=== PATIENT | female | born 1965 ===

== ENCOUNTER 2018-01-31 09:20 | Emergency (ER) | payer OTHER ==
[2018-01-31 09:27] VITALS: BP 137/85; PULSE 67; RESP 18; TEMP 99.1; O2SAT 96
--- NOTE | 2018-01-31 09:50 | C.PDOC ---
History Of Present Illness 52 y/o F c PMHx vertigo p/w cough x 4 days. Cough is productive but patient does not know color. Subjective fever at home. Denies vomiting, chest pain, dysnea, leg swelling. Time Seen by Provider: 01/31/18 09:32 Chief Complaint (Nursing): Cough, Cold, Congestion Past Medical History Vital Signs: Last Vital Signs Temp 99.1 F 01/31/18 09:22 Pulse 67 01/31/18 09:22 Resp 18 01/31/18 09:22 BP 137/85 01/31/18 09:22 Pulse Ox 96 01/31/18 09:51 Family History: States: No Known Family Hx - Social History Hx Tobacco Use: No Hx Alcohol Use: No Hx Substance Use: No - Immunization History Hx Tetanus Toxoid Vaccination: No Hx Influenza Vaccination: No Hx Pneumococcal Vaccination: No Review Of Systems Except As Marked, All Systems Reviewed And Found Negative. Cardiovascular: Negative for: Chest Pain Respiratory: Negative for: Shortness of Breath Physical Exam - Physical Exam Additional Physical Exam Comments: Gen: NAD, coughing intermittently, hoarse voice Head: NC/AT Eyes: PERRL ENT: MMM Neck: Supple Chest: No tenderness CV: Regular rate Lungs: CTA b/l Abd: Soft, NT Back: No CVA tenderness Skin: No rash Extremities: No swelling Neuro: Alert, no focal deficit ED Course And Treatment O2 Sat by Pulse Oximetry: 96 Medical Decision Making Medical Decision Making: Patient mentioned that she has a lower pelvic pain for the last month. I informed her that she can have that evaluated with the cough during today's visit but she refused any evaluation of it and wished to only be seen as if she had a cough. CXR FINDINGS: LUNGS: No consolidation. Possible prominence of the right hilum probable top-normal right infrahilar a vascular markings PLEURA: No significant pleural effusion identified. No pneumothorax apparent. CARDIOVASCULAR: Mild cardiomegaly OSSEOUS STRUCTURES: No significant abnormalities. VISUALIZED UPPER ABDOMEN: Normal. OTHER FINDINGS: None. IMPRESSION: No consolidation. Possible prominent right hilum - chronicity of this appearance is unknown. . If prior outside studies are available 2 years or older recommend comparison to ensure stability. Not consider CT of the chest -preferably with contrast enhancement Other findings -as above. Discharged home, f/u clinic, copy of XR report given, return to ED for worsening pain, fever, dyspnea, or any other problem. Disposition - Disposition Disposition: HOME/ ROUTINE Disposition Time: 10:16 Condition: STABLE Additional Instructions: CXR FINDINGS: LUNGS: No consolidation. Possible prominence of the right hilum probable top-normal right infrahilar a vascular markings PLEURA: No significant pleural effusion identified. No pneumothorax apparent. CARDIOVASCULAR: Mild cardiomegaly OSSEOUS STRUCTURES: No significant abnormalities. VISUALIZED UPPER ABDOMEN: Normal. OTHER FINDINGS: None. IMPRESSION: No consolidation. Possible prominent right hilum - chronicity of this appearance is unknown. . If prior outside studies are available 2 years or older recommend comparison to ensure stability. Not consider CT of the chest -preferably with contrast enhancement Other findings -as above. Prescriptions: Benzonatate [Tessalon Perles] 200 mg PO TID #30 sgl Instructions: Upper Respiratory Infection (ED) Forms: [facility] (Wallisian), Work Excuse - Clinical Impression Clinical Impression: Upper respiratory infection
--- NOTE | 2018-01-31 10:10 | RAD ---
HISTORY: cough COMPARISON: No prior. TECHNIQUE: Chest PA and lateral FINDINGS: LUNGS: No consolidation. Possible prominence of the right hilum probable top-normal right infrahilar a vascular markings PLEURA: No significant pleural effusion identified. No pneumothorax apparent. CARDIOVASCULAR: Mild cardiomegaly OSSEOUS STRUCTURES: No significant abnormalities. VISUALIZED UPPER ABDOMEN: Normal. OTHER FINDINGS: None. IMPRESSION: No consolidation. Possible prominent right hilum - chronicity of this appearance is unknown. . If prior outside studies are available 2 years or older recommend comparison to ensure stability. Not consider CT of the chest -preferably with contrast enhancement Other findings -as above. Comments: Study marked for PA review.
== END 2018-01-31 10:31 | disposition home or self-care (01) ==
LOC: C.ER 09:20
DX: J06.9 Acute upper respiratory infection, unspecified (principal)

== ENCOUNTER 2018-09-21 11:37 | Observation (INO) | payer OTHER ==
--- NOTE | 2018-09-21 13:54 | RAD ---
Date of service: 09/21/2018 HISTORY: SOB, Cp COMPARISON: Chest radiographs 01/31/2018. FINDINGS: LUNGS: No active pulmonary disease. PLEURA: No significant pleural effusion identified, no pneumothorax apparent. CARDIOVASCULAR: No aortic atherosclerotic calcification present. Normal cardiac size. No pulmonary vascular congestion. OSSEOUS STRUCTURES: No significant abnormalities. VISUALIZED UPPER ABDOMEN: Normal. OTHER FINDINGS: None. IMPRESSION: No interval acute cardiopulmonary disease appreciated.
[2018-09-21 13:59] LABS: BASO % 0.6 % (0.0-2.0); EOS # 0.1 K/uL (0.0-0.7); EOS % 3.2 % (0.0-4.0); HEMOGLOBIN 13.9 g/dL (11.0-16.0); LYMPH # 1.5 K/uL (1.0-4.3); LYMPH % 32.9 % (20.0-40.0); MEAN CELL VOLUME 87.1 fL (81.0-99.0); MEAN CORPUSCULAR HEMOGLOBIN 29.9 pg (27.0-31.0); MEAN CORPUSCULAR HGB CONC 34.3 g/dL (33.0-37.0); MEAN PLATELET VOLUME 8.8 fL (7.2-11.7); MONO # 0.5 K/uL (0.0-0.8); MONO % 11.6 % (0.0-10.0); NEUT # 2.3 K/uL (1.8-7.0); NEUT % 51.7 % (50.0-75.0); NRBC % 0.2 % (0.0-2.0); RBC 4.66 Mil/uL (3.80-5.20); RED CELL DISTRIBUTION WIDTH 14.1 % (11.5-14.5); WHITE BLOOD COUNT 4.5 K/uL (4.8-10.8)
[2018-09-21 14:01] LABS: URINE BACTERIA RARE (<OCC); URINE BILIRUBIN NEGATIVE (NEGATIVE); URINE BLOOD 1+ (NEGATIVE); URINE CLARITY Clear (Clear); URINE COLOR Yellow (YELLOW); URINE GLUCOSE (UA) NORMAL (Normal); URINE LEUKOCYTE ESTERASE NEG Leu/uL (Negative); URINE PROTEIN NEGATIVE (NEGATIVE); URINE UROBILINOGEN NORMAL mg/dL (0.2-1.0)
[2018-09-21 14:10] LABS: PROTHROMBIN TIME 11.1 SECONDS (9.7-12.2)
--- NOTE | 2018-09-21 14:43 | C.PDOC ---
History Of Present Illness 53 y/o female presents to the ED complaining of chest pain and SOB for the last 3 days. States she never had symptoms in the past. Otherwise she denies any cough, fever, chills, nausea, vomiting, cold sweats, dizziness, headache, or lower leg swelling/pain. Time Seen by Provider: 09/21/18 11:57 Chief Complaint (Nursing): Chest Pain History Per: Patient History/Exam Limitations: no limitations Onset/Duration Of Symptoms: Days Current Symptoms Are (Timing): Still Present Past Medical History Reviewed: Historical Data, Nursing Documentation, Vital Signs Vital Signs: Last Vital Signs Temp 98.6 F 09/21/18 11:38 Pulse 71 09/21/18 11:38 Resp 20 09/21/18 11:38 BP 147/87 09/21/18 11:38 Pulse Ox 98 09/21/18 11:38 - Medical History Other PMH: Vertigo Surgical History: Family History: States: Unknown Family Hx - Social History Hx Tobacco Use: No Hx Alcohol Use: No Hx Substance Use: No - Immunization History Hx Tetanus Toxoid Vaccination: No Hx Influenza Vaccination: No Hx Pneumococcal Vaccination: No Review Of Systems Constitutional: Negative for: Fever, Chills Eyes: Negative for: Vision Change Cardiovascular: Positive for: Chest Pain. Negative for: Palpitations Respiratory: Positive for: Shortness of Breath. Negative for: Cough Gastrointestinal: Negative for: Nausea, Vomiting, Diarrhea Skin: Negative for: Rash Neurological: Negative for: Weakness, Headache, Dizziness Physical Exam - Physical Exam Appears: Non-toxic, No Acute Distress Skin: Warm, Dry, No Diaphoretic Head: Atraumatic, Normacephalic Eye(s): bilateral: Normal Inspection, PERRL, EOMI Oral Mucosa: Moist Neck: Normal ROM Chest: Symmetrical, No Tenderness Cardiovascular: Rhythm Regular (but tachycardic) Respiratory: No Rales, No Rhonchi, No Wheezing Gastrointestinal/Abdominal: Soft, No Tenderness, No Distention Extremity: Bilateral: Atraumatic, Normal Color And Temperature Pulses: Left Radial: Normal, Right Radial: Normal Neurological/Psych: Oriented x3 Gait: Steady ED Course And Treatment - Laboratory Results Result Diagrams: 09/21/18 13:47 09/21/18 14:26 Lab Results: PT 11.1 SECONDS (9.7-12.2) 09/21/18 13:47 INR 1.0 09/21/18 13:47 APTT 34 SECONDS (21-34) 09/21/18 13:47 D-Dimer, Quantitative 495 ng/mlDDU (0-243) H 09/21/18 13:47 Urine Color Yellow (YELLOW) 09/21/18 13:11 Urine Clarity Clear (Clear) 09/21/18 13:11 Urine pH 5.0 (5.0-8.0) 09/21/18 13:11 Ur Specific [place] 1.015 (1.003-1.030) 09/21/18 13:11 Urine Protein Negative mg/dL (NEGATIVE) 09/21/18 13:11 Urine Glucose (UA) Normal mg/dL (Normal) 09/21/18 13:11 Urine Ketones Negative mg/dL (NEGATIVE) 09/21/18 13:11 Urine Blood 1+ (NEGATIVE) H 09/21/18 13:11 Urine Nitrate Negative (NEGATIVE) 09/21/18 13:11 Urine Bilirubin Negative (NEGATIVE) 09/21/18 13:11 Urine Urobilinogen Normal mg/dL (0.2-1.0) 09/21/18 13:11 Ur Leukocyte Esterase Neg Salma/uL (Negative) 09/21/18 13:11 Urine WBC (Auto) < 1 /hpf (0-5) 09/21/18 13:11 Urine RBC (Auto) < 1 /hpf (0-3) 09/21/18 13:11 Urine Bacteria Rare (<OCC) 09/21/18 13:11 ECG: Interpreted By Me, Viewed By Me ECG Rhythm: Sinus Tachycardia Interpretation Of ECG: LVH Rate From EC O2 Sat by Pulse Oximetry: 98 (RA) Pulse Ox Interpretation: Normal - Other Rad CXR X-Ray: Read By Radiologist Interpretation: Accession No. : [id number]. Patient Name / ID : OSIEL ROCHA / [id number]. Exam Date : 09/21/2018 13:22:36 ( Approved ). Study Comment : Sex / Age : F / 53Y. Creator : sean pineda. Dictator : Sean Burris MD. Cash Poster : Wire Galvanizer : Sean Burris MD. Approver2 : Report Date : 09/21/2018 13:27:34. My Comment : . Date of service: 09/21/2018. HISTORY: SOB, Cp. COMPARISON: Chest radiographs 01/31/2018. FINDINGS: LUNGS: No active pulmonary disease. PLEURA: No significant pleural effusion identified, no pneumothorax apparent. CARDIOVASCULAR: No aortic atherosclerotic calcification present. Normal cardiac size. No pulmonary vascular congestion. OSSEOUS STRUCTURES: No significant abnormalities. VISUALIZED UPPER ABDOMEN: Normal. OTHER FINDINGS: None. IMPRESSION: No interval acute cardiopulmonary disease appreciated. - CT Scan/US CTA Chest Other Rad Studies (CT/US): Read By Radiologist, Radiology Report Reviewed CT/US Interpretation: Accession No. : [id number]. Patient Name / ID : OSIEL JACKSON / [id number]. Exam Date : 09/21/2018 16:55:07 ( Approved ). Study Comment : Sex / Age : F / 53Y. Creator : Florecita Lea. Dictator : Brook Berumen MD. Cash Poster : Wire Galvanizer : Brook Berumen MD. Approver2 : Report Date : 09/21/2018 17:11:59. My Comment : . Date of service: 09/21/2018. CTA chest PE protocol. Indication: chest pain/SOB. Technique: Contiguous axial images were obtained through the chest with intravenous contrast enhancement. Sagittal and coronal reconstructions were generated and reviewed. This CT exam was performed using 1 or more of the following dose reduction techniques: Automated exposure control, adjustment of the MAA and/or kV according to patient size, and/or use of iterative reconstruction technique. IV contrast: 100 mL Visipaque 320 IV. . Radiation dose (DLP): 494.71 MGy-cm. Comparison: Chest x-ray performed 09/21/18. Findings: Visualized portions of the inferior thyroid gland appear unremarkable. The mediastinal and hilar vascular structures appear within normal limits. The heart appears within normal limits of size. No large central or segmental pulmonary embolus evident. Multiple regions of patchy right upper lobe nodular infiltrates consistent with pneumonia. No pleural effusion. No pneumothorax. Small hiatal hernia/distal esophageal wall thickening. Limited visualized portions of the upper abdomen: Indeterminate focus of enhancement within the medial left hepatic lobe with suspected feeding vessel. Mild degenerative changes. Impression: Multiple regions of patchy right upper lobe nodular infiltrates consistent with pneumonia. No large central or segmental pulmonary embolus identified. Indeterminate 1.3 cm enhancing focus with suspected feeding vessel within the medial left hepatic lobe. Recommend further characterization with dedicated liver protocol CT if indicated. Progress Note: Labs ordered including D-dimer. EKG and CXR reviewed. Labs reviewed, D-dimer elevated at 495. Will obtain CTA Chest to rule out PE. CTA shows right-sided infiltrates, negative for PE. All findings discussed with patient in detail. 18:16 Blood culture sent. Administered IV rocephin and zithro. Will page hospitalist - Physician Consult Information Time Consulting Physician Contacted: 18:20 Physician Contacted: Kwabena Lerner Outcome Of Conversation: patient accepted to hospitalist service under Dr. Forrest Disposition - Disposition Disposition: HOSPITALIZED Disposition Time: 18:20 Condition: FAIR Forms: [facility] (Norwegian) - Clinical Impression Clinical Impression: Pneumonia - PA / ARCHEOLOGIST CLASSICAL / Resident Statement MD/DO has reviewed & agrees with the documentation as recorded. - Scribe Statement The provider has reviewed the documentation as recorded by the Scribe Lizzette Steiner All medical record entries made by the Geethaibdipesh were at my direction and personally dictated by me. I have reviewed the chart and agree that the record accurately reflects my personal performance of the history, physical exam, medical decision making, and the department course for this patient. I have also personally directed, reviewed, and agree with the discharge instructions and disposition. Decision To Admit - Pt Status Changed To: Hospital Disposition Of: Inpatient - Admit Certification Admit to Inpatient:: After my assessment, the patient will require hospitalization for at least two midnights. This is because of the severity of symptoms shown, intensity of services needed, and/or the medical risk in this patient being treated as an outpatient. - InPatient: Physician Admission Certification: I certify that this patient requires 2 or more midnights of care for the following reason:: will need IV antibiotics for more than 2 days - . Bed Request Type: Regular Admitting Physician: David Forrest Patient Diagnosis: Pneumonia
[2018-09-21 14:54] LABS: ALB/GLOB RATIO 1.4 (1.0-2.1); ALBUMIN 4.1 g/dL (3.5-5.0); ALT/SGPT 50 U/L (9-52); AST/SGOT 35 U/L (14-36); BLOOD UREA NITROGEN 9 mg/dL (7-17); CALCIUM 8.7 mg/dl (8.6-10.4); GFR NON-AFRICAN AMERICAN > 60
[2018-09-21 15:00] LABS: CK-MB 1.09 ng/mL (0.0-3.38)
[2018-09-21] MEDS ORDERED: Iodixanol 320 MG/ML 100 ML BOTTLE IV ONE (16:19)
--- NOTE | 2018-09-21 17:32 | CT ---
Date of service: 09/21/2018 CTA chest PE protocol Indication: chest pain/SOB Technique: Contiguous axial images were obtained through the chest with intravenous contrast enhancement. Sagittal and coronal reconstructions were generated and reviewed. This CT exam was performed using 1 or more of the following dose reduction techniques: Automated exposure control, adjustment of the MAA and/or kV according to patient size, and/or use of iterative reconstruction technique. IV contrast: 100 mL Visipaque 320 IV Radiation dose (DLP): 494.71 MGy-cm. Comparison: Chest x-ray performed 09/21/18 Findings: Visualized portions of the inferior thyroid gland appear unremarkable. The mediastinal and hilar vascular structures appear within normal limits. The heart appears within normal limits of size. No large central or segmental pulmonary embolus evident. Multiple regions of patchy right upper lobe nodular infiltrates consistent with pneumonia. No pleural effusion. No pneumothorax. Small hiatal hernia/distal esophageal wall thickening. Limited visualized portions of the upper abdomen: Indeterminate focus of enhancement within the medial left hepatic lobe with suspected feeding vessel. Mild degenerative changes. Impression: Multiple regions of patchy right upper lobe nodular infiltrates consistent with pneumonia. No large central or segmental pulmonary embolus identified. Indeterminate 1.3 cm enhancing focus with suspected feeding vessel within the medial left hepatic lobe. Recommend further characterization with dedicated liver protocol CT if indicated.
[2018-09-21] MEDS ORDERED: Azithromycin 500mg/250ML NS 500 MG/250 ML BAG IV SCH (18:30)
--- NOTE | 2018-09-21 20:49 | CP.PCM.HP ---
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 Cough is productive of green phlegm. Chest pain is at the left sternal border, described as a pressure/soreness, non radiating and occurring when she coughs, takes a deep breath or pushes on the area. She denies headache, dizziness, visual changes, n/v/d, orthopnea, spb, recent antibiotic use, recent travel, car ride longer than 4 hours, leg pain or swelling, urinary complaints, hematuria, hematochezia, hemoptysis. Pt reports a history of chronic lower abdominal pain, which she currently denies having. PMD: [facility] PMH: Vertigo No history of hospitalizations PSH: c/s x1 15 years ago Meds: meclizine 25 mg PO PRN Allx: NKDA FHx: Father with HTN, Mother is healthy. No history of cancers. SHx: Lives in [place]. Denies history of smoking, etoh use or drug use. Menopause started approximately 5 years ago. Has not had colonoscopy, but her PMD has mentioned the need for one to her. Has not had the flu shot this year. Present on Admission - Present on Admission Any Indicators Present on Admission: No Review of Systems - Review of Systems All systems: reviewed and no additional remarkable complaints except (as per HPI) Past Patient History - Past Social History Smoking Status: Never Smoked - NEUROLOGICAL Hx Neurological Disorder: Yes Hx Vertigo: Yes - PSYCHIATRIC Hx Substance Use: No - SURGICAL HISTORY Hx Surgeries: Yes Hx Section: Yes - ANESTHESIA Hx Anesthesia: No Hx Anesthesia Reactions: No Meds Allergies/Adverse Reactions: Allergies Allergy/AdvReac Type Severity Reaction Status Date / Time No Known Allergies Allergy Verified 09/21/18 11:41 Physical Exam - Constitutional Appears: Non-toxic, No Acute Distress - Head Exam Head Exam: ATRAUMATIC, NORMAL INSPECTION - Eye Exam Eye Exam: EOMI, Normal appearance - ENT Exam ENT Exam: Mucous Membranes Moist - Respiratory Exam Respiratory Exam: Chest Wall Tenderness (reproducible left sternal border tenderness), Clear to Auscultation Bilateral, NORMAL BREATHING PATTERN. absent: Decreased Breath Sounds, Rales, Rhonchi, Wheezes, Respiratory Distress, Stridor - Cardiovascular Exam Cardiovascular Exam: REGULAR RHYTHM, +S1, +S2. absent: Tachycardia, Diastolic murmur, Irregular Rhythm, Rubs, Systolic Murmur - GI/Abdominal Exam GI & Abdominal Exam: Normal Bowel Sounds, Soft (obese). absent: Distended, Rebound, Rigid, Tenderness - Extremities Exam Extremities exam: Positive for: normal capillary refill, normal inspection, pedal pulses present. Negative for: calf tenderness, pedal edema - Back Exam Back exam: NORMAL INSPECTION. absent: CVA tenderness (L), CVA tenderness (R) - Neurological Exam Neurological exam: Alert, Oriented x3 - Psychiatric Exam Psychiatric exam: Normal Affect, Normal Mood - Skin Skin Exam: Dry, Normal Color, Warm Results - Vital Signs Recent Vital Signs: Last Vital Signs Temp 98.5 F 09/21/18 18:15 Pulse 67 09/21/18 18:15 Resp 18 09/21/18 18:15 BP 138/86 09/21/18 18:15 Pulse Ox 98 09/21/18 18:38 - Labs Result Diagrams: 09/21/18 13:47 09/21/18 14:26 Labs: Laboratory Results - last 24 hr 09/21/18 09/21/18 09/21/18 13:11 13:47 13:47 WBC 4.5 L RBC 4.66 Hgb 13.9 Hct 40.6 MCV 87.1 MCH 29.9 MCHC 34.3 RDW 14.1 Plt Count 188 MPV 8.8 Neut % (Auto) 51.7 Lymph % (Auto) 32.9 [place] % (Auto) 11.6 H Eos % (Auto) 3.2 Baso % (Auto) 0.6 Neut # (Auto) 2.3 Lymph # (Auto) 1.5 [place] # (Auto) 0.5 Eos # (Auto) 0.1 Baso # (Auto) 0.0 PT 11.1 INR 1.0 APTT 34 D-Dimer, Quantitative 495 H Sodium Potassium Chloride Carbon Dioxide Anion Gap BUN Creatinine Est GFR ( Amer) Est GFR (Non-Af Amer) Random Glucose Calcium Total Bilirubin AST ALT Alkaline Phosphatase CK-MB (Mass) Troponin I Total Protein Albumin Globulin Albumin/Globulin Ratio Urine Color Yellow Urine Clarity Clear Urine pH 5.0 Ur Specific [place] 1.015 Urine Protein Negative Urine Glucose (UA) Normal Urine Ketones Negative Urine Blood 1+ H Urine Nitrate Negative Urine Bilirubin Negative Urine Urobilinogen Normal Ur Leukocyte Esterase Neg Urine WBC (Auto) < 1 Urine RBC (Auto) < 1 Urine Bacteria Rare Influenza Typ A,B (EIA) 09/21/18 09/21/18 14:26 19:25 WBC RBC Hgb Hct MCV MCH MCHC RDW Plt Count MPV Neut % (Auto) Lymph % (Auto) [place] % (Auto) Eos % (Auto) Baso % (Auto) Neut # (Auto) Lymph # (Auto) [place] # (Auto) Eos # (Auto) Baso # (Auto) PT INR APTT D-Dimer, Quantitative Sodium 137 Potassium 3.8 Chloride 105 Carbon Dioxide 26 Anion Gap 11 BUN 9 Creatinine 0.5 L Est GFR ( Amer) > 60 Est GFR (Non-Af Amer) > 60 Random Glucose 95 D Calcium 8.7 Total Bilirubin 0.4 AST 35 ALT 50 Alkaline Phosphatase 118 CK-MB (Mass) 1.09 Troponin I < 0.0120 Total Protein 7.0 Albumin 4.1 Globulin 2.9 Albumin/Globulin Ratio 1.4 Urine Color Urine Clarity Urine pH Ur Specific [place] Urine Protein Urine Glucose (UA) Urine Ketones Urine Blood Urine Nitrate Urine Bilirubin Urine Urobilinogen Ur Leukocyte Esterase Urine WBC (Auto) Urine RBC (Auto) Urine Bacteria Influenza Typ A,B (EIA) Negative for flu a/b Assessment & Plan - Assessment and Plan (Free Text) Assessment: This is a 53 year old female with PMH of vertigo who presents with a three day history of worsening productive cough, fatigue, tactile fever and chest pain wi th sob. Admitted for observation for pneumonia. Plan: Atypical chest pain, r/o ACS; likely due to costochondritis secondary to pneumonia Troponin x2 was negative; will trend q6h Ddimer was 495, likely due to pneumonia Chest CTA shows Multiple regions of patchy right upper love nodular infiltrates consistent with pneumonia. No large central or segmental pulmonary embolus identified. Indeterminate 1.3 cm enhancing focus suspected feeding vessel within the medial left hepatic lobe. Tylenol for fever or pain Community acquired pneumonia Pt does not meet Sepsis criteria RUL infiltrates on CT; see above Pt's PORT/PSI score is 41 points, 0.6-0.9% mortality Doxycycline 100 mg PO BID x 7 days Tylenol for fever or pain F/u sputum culture, strep pneumonia, mycoplasmma IgM, blood cultures No indication for GI ppx at this time VTE ppx with SCDs HHD Dispo:observation Case discussed with Dr. Lon Pinto PGY1 <David Forrest P - Last Filed: 09/22/18 08:21> Results - Vital Signs Recent Vital Signs: Last Vital Signs Temp 98.2 F 09/21/18 23:30 Pulse 65 09/21/18 23:30 Resp 20 09/21/18 23:30 BP 133/73 09/21/18 23:30 Pulse Ox 96 09/21/18 23:30 - Labs Result Diagrams: 09/22/18 07:00 09/22/18 07:00 Labs: Laboratory Results - last 24 hr 09/21/18 09/21/18 09/21/18 13:11 13:47 13:47 WBC 4.5 L RBC 4.66 Hgb 13.9 Hct 40.6 MCV 87.1 MCH 29.9 MCHC 34.3 RDW 14.1 Plt Count 188 MPV 8.8 Neut % (Auto) 51.7 Lymph % (Auto) 32.9 [place] % (Auto) 11.6 H Eos % (Auto) 3.2 Baso % (Auto) 0.6 Neut # (Auto) 2.3 Lymph # (Auto) 1.5 [place] # (Auto) 0.5 Eos # (Auto) 0.1 Baso # (Auto) 0.0 PT 11.1 INR 1.0 APTT 34 D-Dimer, Quantitative 495 H Sodium Potassium Chloride Carbon Dioxide Anion Gap BUN Creatinine Est GFR ( Amer) Est GFR (Non-Af Amer) Random Glucose Calcium Total Bilirubin AST ALT Alkaline Phosphatase CK-MB (Mass) Troponin I Total Protein Albumin Globulin Albumin/Globulin Ratio Urine Color Yellow Urine Clarity Clear Urine pH 5.0 Ur Specific [place] 1.015 Urine Protein Negative Urine Glucose (UA) Normal Urine Ketones Negative Urine Blood 1+ H Urine Nitrate Negative Urine Bilirubin Negative Urine Urobilinogen Normal Ur Leukocyte Esterase Neg Urine WBC (Auto) < 1 Urine RBC (Auto) < 1 Urine Bacteria Rare Influenza Typ A,B (EIA) Ur L.pneumophila Ag 09/21/18 09/21/18 09/21/18 14:26 19:25 20:47 WBC RBC Hgb Hct MCV MCH MCHC RDW Plt Count MPV Neut % (Auto) Lymph % (Auto) [place] % (Auto) Eos % (Auto) Baso % (Auto) Neut # (Auto) Lymph # (Auto) [place] # (Auto) Eos # (Auto) Baso # (Auto) PT INR APTT D-Dimer, Quantitative Sodium 137 Potassium 3.8 Chloride 105 Carbon Dioxide 26 Anion Gap 11 BUN 9 Creatinine 0.5 L Est GFR ( Amer) > 60 Est GFR (Non-Af Amer) > 60 Random Glucose 95 D Calcium 8.7 Total Bilirubin 0.4 AST 35 ALT 50 Alkaline Phosphatase 118 CK-MB (Mass) 1.09 Troponin I < 0.0120 Total Protein 7.0 Albumin 4.1 Globulin 2.9 Albumin/Globulin Ratio 1.4 Urine Color Urine Clarity Urine pH Ur Specific [place] Urine Protein Urine Glucose (UA) Urine Ketones Urine Blood Urine Nitrate Urine Bilirubin Urine Urobilinogen Ur Leukocyte Esterase Urine WBC (Auto) Urine RBC (Auto) Urine Bacteria Influenza Typ A,B (EIA) Negative for flu a/b Ur L.pneumophila Ag Negative 09/21/18 09/22/18 09/22/18 22:16 07:00 07:00 WBC 4.8 RBC 4.53 Hgb 13.7 Hct 39.2 MCV 86.5 MCH 30.1 MCHC 34.8 RDW 13.9 Plt Count 182 MPV 8.8 Neut % (Auto) 45.9 L Lymph % (Auto) 38.8 [place] % (Auto) 11.7 H Eos % (Auto) 2.8 Baso % (Auto) 0.8 Neut # (Auto) 2.2 Lymph # (Auto) 1.9 [place] # (Auto) 0.6 Eos # (Auto) 0.1 Baso # (Auto) 0.0 PT INR APTT D-Dimer, Quantitative Sodium 140 Potassium 4.1 Chloride 105 Carbon Dioxide 30 Anion Gap 10 BUN 11 Creatinine 0.6 L Est GFR ( Amer) > 60 Est GFR (Non-Af Amer) > 60 Random Glucose 96 Calcium 8.3 L Total Bilirubin AST ALT Alkaline Phosphatase CK-MB (Mass) Troponin I < 0.0120 Total Protein Albumin Globulin Albumin/Globulin Ratio Urine Color Urine Clarity Urine pH Ur Specific [place] Urine Protein Urine Glucose (UA) Urine Ketones Urine Blood Urine Nitrate Urine Bilirubin Urine Urobilinogen Ur Leukocyte Esterase Urine WBC (Auto) Urine RBC (Auto) Urine Bacteria Influenza Typ A,B (EIA) Ur L.pneumophila Ag 09/22/18 07:00 WBC RBC Hgb Hct MCV MCH MCHC RDW Plt Count MPV Neut % (Auto) Lymph % (Auto) [place] % (Auto) Eos % (Auto) Baso % (Auto) Neut # (Auto) Lymph # (Auto) [place] # (Auto) Eos # (Auto) Baso # (Auto) PT INR APTT D-Dimer, Quantitative Sodium Potassium Chloride Carbon Dioxide Anion Gap BUN Creatinine Est GFR ( Amer) Est GFR (Non-Af Amer) Random Glucose Calcium Total Bilirubin AST ALT Alkaline Phosphatase CK-MB (Mass) Troponin I < 0.0120 Total Protein Albumin Globulin Albumin/Globulin Ratio Urine Color Urine Clarity Urine pH Ur Specific [place] Urine Protein Urine Glucose (UA) Urine Ketones Urine Blood Urine Nitrate Urine Bilirubin Urine Urobilinogen Ur Leukocyte Esterase Urine WBC (Auto) Urine RBC (Auto) Urine Bacteria Influenza Typ A,B (EIA) Ur L.pneumophila Ag Attending/Attestation - Attestation I have personally seen and examined this patient.: Yes I have fully participated in the care of the patient.: Yes I have reviewed all pertinent clinical information: Yes Notes (Text): 09/22/18 08:21 Assessed patient along with the resident, formulated the plan of care as above, agree with documentation.
[2018-09-21 22:34] VITALS: RESP 20
[2018-09-22 00:30] VITALS: O2SAT 96
[2018-09-22 07:11] LABS: BASO % 0.8 % (0.0-2.0); EOS # 0.1 K/uL (0.0-0.7); EOS % 2.8 % (0.0-4.0); HEMOGLOBIN 13.7 g/dL (11.0-16.0); LYMPH # 1.9 K/uL (1.0-4.3); LYMPH % 38.8 % (20.0-40.0); MEAN CELL VOLUME 86.5 fL (81.0-99.0); MEAN CORPUSCULAR HEMOGLOBIN 30.1 pg (27.0-31.0); MEAN CORPUSCULAR HGB CONC 34.8 g/dL (33.0-37.0); MEAN PLATELET VOLUME 8.8 fL (7.2-11.7); MONO # 0.6 K/uL (0.0-0.8); MONO % 11.7 % (0.0-10.0); NEUT # 2.2 K/uL (1.8-7.0); NEUT % 45.9 % (50.0-75.0); NRBC % 0.1 % (0.0-2.0); RBC 4.53 Mil/uL (3.80-5.20); RED CELL DISTRIBUTION WIDTH 13.9 % (11.5-14.5); WHITE BLOOD COUNT 4.8 K/uL (4.8-10.8)
[2018-09-22 07:29] LABS: BLOOD UREA NITROGEN 11 mg/dL (7-17); CALCIUM 8.3 mg/dl (8.6-10.4); GFR NON-AFRICAN AMERICAN > 60
[2018-09-22 08:27] VITALS: BP 116/69; PULSE 58; TEMP 98.1
--- NOTE | 2018-09-22 09:30 | CP.PCM.DIS ---
<Zhanna Harman - Last Filed: 09/22/18 17:56> Provider - Provider Date of Admission: 09/21/18 18:33 Attending physician: David Forrest MD Primary care physician: Dr. Springer Consults: none Time Spent in preparation of Discharge (in minutes): 45 Diagnosis - Discharge Diagnosis (1) Pneumonia Status: Acute Priority: High Hospital Course - Lab Results Lab Results: Most Recent Lab Values WBC 4.8 K/uL (4.8-10.8) 09/22/18 07:00 RBC 4.53 Mil/uL (3.80-5.20) 09/22/18 07:00 Hgb 13.7 g/dL (11.0-16.0) 09/22/18 07:00 Hct 39.2 % (34.0-47.0) 09/22/18 07:00 MCV 86.5 fL (81.0-99.0) 09/22/18 07:00 MCH 30.1 pg (27.0-31.0) 09/22/18 07:00 MCHC 34.8 g/dL (33.0-37.0) 09/22/18 07:00 RDW 13.9 % (11.5-14.5) 09/22/18 07:00 Plt Count 182 K/uL (130-400) 09/22/18 07:00 MPV 8.8 fL (7.2-11.7) 09/22/18 07:00 Neut % (Auto) 45.9 % (50.0-75.0) L 09/22/18 07:00 Lymph % (Auto) 38.8 % (20.0-40.0) 09/22/18 07:00 [place] % (Auto) 11.7 % (0.0-10.0) H 09/22/18 07:00 Eos % (Auto) 2.8 % (0.0-4.0) 09/22/18 07:00 Baso % (Auto) 0.8 % (0.0-2.0) 09/22/18 07:00 Neut # (Auto) 2.2 K/uL (1.8-7.0) 09/22/18 07:00 Lymph # (Auto) 1.9 K/uL (1.0-4.3) 09/22/18 07:00 [place] # (Auto) 0.6 K/uL (0.0-0.8) 09/22/18 07:00 Eos # (Auto) 0.1 K/uL (0.0-0.7) 09/22/18 07:00 Baso # (Auto) 0.0 K/uL (0.0-0.2) 09/22/18 07:00 PT 11.1 SECONDS (9.7-12.2) 09/21/18 13:47 INR 1.0 09/21/18 13:47 APTT 34 SECONDS (21-34) 09/21/18 13:47 D-Dimer, Quantitative 495 ng/mlDDU (0-243) H 09/21/18 13:47 Sodium 140 mmol/L (132-148) 09/22/18 07:00 Potassium 4.1 mmol/L (3.6-5.2) 09/22/18 07:00 Chloride 105 mmol/L (98-107) 09/22/18 07:00 Carbon Dioxide 30 mmol/L (22-30) 09/22/18 07:00 Anion Gap 10 (10-20) 09/22/18 07:00 BUN 11 mg/dL (7-17) 09/22/18 07:00 Creatinine 0.6 mg/dL (0.7-1.2) L 09/22/18 07:00 Est GFR ( Amer) > 60 09/22/18 07:00 Est GFR (Non-Af Amer) > 60 09/22/18 07:00 Random Glucose 96 mg/dL (65-105) 09/22/18 07:00 Calcium 8.3 mg/dl (8.6-10.4) L 09/22/18 07:00 Total Bilirubin 0.4 mg/dL (0.2-1.3) 09/21/18 14:26 AST 35 U/L (14-36) 09/21/18 14:26 ALT 50 U/L (9-52) 09/21/18 14:26 Alkaline Phosphatase 118 U/L (38-126) 09/21/18 14:26 CK-MB (Mass) 1.09 ng/mL (0.0-3.38) 09/21/18 14:26 Troponin I < 0.0120 ng/mL (0.00-0.120) 09/22/18 07:00 Total Protein 7.0 g/dL (6.3-8.3) 09/21/18 14:26 Albumin 4.1 g/dL (3.5-5.0) 09/21/18 14:26 Globulin 2.9 gm/dL (2.2-3.9) 09/21/18 14:26 Albumin/Globulin Ratio 1.4 (1.0-2.1) 09/21/18 14:26 Urine Color Yellow (YELLOW) 09/21/18 13:11 Urine Clarity Clear (Clear) 09/21/18 13:11 Urine pH 5.0 (5.0-8.0) 09/21/18 13:11 Ur Specific [place] 1.015 (1.003-1.030) 09/21/18 13:11 Urine Protein Negative mg/dL (NEGATIVE) 09/21/18 13:11 Urine Glucose (UA) Normal mg/dL (Normal) 09/21/18 13:11 Urine Ketones Negative mg/dL (NEGATIVE) 09/21/18 13:11 Urine Blood 1+ (NEGATIVE) H 09/21/18 13:11 Urine Nitrate Negative (NEGATIVE) 09/21/18 13:11 Urine Bilirubin Negative (NEGATIVE) 09/21/18 13:11 Urine Urobilinogen Normal mg/dL (0.2-1.0) 09/21/18 13:11 Ur Leukocyte Esterase Neg [place]/uL (Negative) 09/21/18 13:11 Urine WBC (Auto) < 1 /hpf (0-5) 09/21/18 13:11 Urine RBC (Auto) < 1 /hpf (0-3) 09/21/18 13:11 Urine Bacteria Rare (<OCC) 09/21/18 13:11 Influenza Typ A,B (EIA) Negative for flu a/b (NEGATIVE) 09/21/18 19:25 Ur L.pneumophila Ag Negative (NEGATIVE) 09/21/18 20:47 - Hospital Course Hospital Course: Patient is a 53 year old female with PMH of vertigo who presents with a three day history of worsening productive cough, fatigue, tactile fever/chills and chest pain. Cough is productive of green phlegm. Chest pain is at the left sternal border, described as a pressure/soreness, non radiating and occurring when she coughs, takes a deep breath or pushes on the area. She denies headache, dizziness, visual changes, n/v/d, orthopnea, spb, recent antibiotic use, recent travel, car ride longer than 4 hours, leg pain or swelling, urinary complaints, hematuria, hematochezia, hemoptysis. Pt reports a history of chronic lower abdominal pain, which she currently denies having. CXR was negative for acute disease, but CTA was done to r/o PE as D-dimer was elevated. CTA chest did not show PE but did demonstrate RUL infiltrate. Patient was started on abx for pneumonia. Influenza, Legionella, and URI panel were negative. Troponins negative x2 and EKG showed NSR. Upon discharge, patient was feeling better. She was not short of breath. She had minimal cough. She was eating, drinking, and ambulating without difficulty. She remain afebrile and without leukocytosis. She is being discharged on PO abx and will follow-up with her PMD, Dr. Springer. Discharge Exam - Head Exam Head Exam: ATRAUMATIC, NORMAL INSPECTION - Eye Exam Eye Exam: EOMI, Normal appearance - ENT Exam ENT Exam: Mucous Membranes Moist - Respiratory Exam Respiratory Exam: Clear to PA & Lateral, NORMAL BREATHING PATTERN, UNREMARKABLE - Cardiovascular Exam Cardiovascular Exam: RRR, +S1, +S2 - GI/Abdominal Exam GI & Abdominal Exam: Soft, Unremarkable. absent: Distended - Extremities Exam Extremities exam: normal inspection - Neurological Exam Neurological exam: Alert, CN II-XII Intact, Normal Gait, Oriented x3 - Psychiatric Exam Psychiatric exam: Normal Affect, Normal Mood - Skin Skin Exam: Dry, Intact, Normal Color, Warm Discharge Plan - Discharge Medications Prescriptions: RX: Benzonatate [Tessalon Perles] 200 mg PO TID #15 sgl Ciprofloxacin [Cipro] 500 mg PO BID #10 tab - Follow Up Plan Condition: IMPROVED Disposition: HOME/ ROUTINE Patient education suggested?: Yes Instructions: Ciprofloxacin (Systemic), Pneumonia, Adult (DC), Benzonatate Additional Instructions: Follow-up with your primary care physician, Dr. Springer, within 3-5 days of discharge. You are being given a prescription for Doxycycline, an antibiotic. Take two times daily for 5 days. You are being given a prescription for Tessalon perles. Take up to 3 times daily as needed for cough. Ensure you stay adequately hydrated. If symptoms worsen or recur, return to the nearest emergency room. Referrals: Tello Springer MD [Staff Provider] - <CasperMaximiliano neumann - Last Filed: 09/22/18 18:55> Provider - Provider Date of Admission: 09/21/18 18:33 Attending physician: David Forrest MD Hospital Course - Lab Results Lab Results: Micro Results 09/21/18 18:41 Blood Blood Culture - Preliminary NO GROWTH AFTER 24 HOURS 09/21/18 18:41 Blood Blood Culture - Preliminary NO GROWTH AFTER 24 HOURS Most Recent Lab Values WBC 4.8 K/uL (4.8-10.8) 09/22/18 07:00 RBC 4.53 Mil/uL (3.80-5.20) 09/22/18 07:00 Hgb 13.7 g/dL (11.0-16.0) 09/22/18 07:00 Hct 39.2 % (34.0-47.0) 09/22/18 07:00 MCV 86.5 fL (81.0-99.0) 09/22/18 07:00 MCH 30.1 pg (27.0-31.0) 09/22/18 07:00 MCHC 34.8 g/dL (33.0-37.0) 09/22/18 07:00 RDW 13.9 % (11.5-14.5) 09/22/18 07:00 Plt Count 182 K/uL (130-400) 09/22/18 07:00 MPV 8.8 fL (7.2-11.7) 09/22/18 07:00 Neut % (Auto) 45.9 % (50.0-75.0) L 09/22/18 07:00 Lymph % (Auto) 38.8 % (20.0-40.0) 09/22/18 07:00 [place] % (Auto) 11.7 % (0.0-10.0) H 09/22/18 07:00 Eos % (Auto) 2.8 % (0.0-4.0) 09/22/18 07:00 Baso % (Auto) 0.8 % (0.0-2.0) 09/22/18 07:00 Neut # (Auto) 2.2 K/uL (1.8-7.0) 09/22/18 07:00 Lymph # (Auto) 1.9 K/uL (1.0-4.3) 09/22/18 07:00 [place] # (Auto) 0.6 K/uL (0.0-0.8) 09/22/18 07:00 Eos # (Auto) 0.1 K/uL (0.0-0.7) 09/22/18 07:00 Baso # (Auto) 0.0 K/uL (0.0-0.2) 09/22/18 07:00 PT 11.1 SECONDS (9.7-12.2) 09/21/18 13:47 INR 1.0 09/21/18 13:47 APTT 34 SECONDS (21-34) 09/21/18 13:47 D-Dimer, Quantitative 495 ng/mlDDU (0-243) H 09/21/18 13:47 Sodium 140 mmol/L (132-148) 09/22/18 07:00 Potassium 4.1 mmol/L (3.6-5.2) 09/22/18 07:00 Chloride 105 mmol/L (98-107) 09/22/18 07:00 Carbon Dioxide 30 mmol/L (22-30) 09/22/18 07:00 Anion Gap 10 (10-20) 09/22/18 07:00 BUN 11 mg/dL (7-17) 09/22/18 07:00 Creatinine 0.6 mg/dL (0.7-1.2) L 09/22/18 07:00 Est GFR ( Amer) > 60 09/22/18 07:00 Est GFR (Non-Af Amer) > 60 09/22/18 07:00 Random Glucose 96 mg/dL (65-105) 09/22/18 07:00 Calcium 8.3 mg/dl (8.6-10.4) L 09/22/18 07:00 Total Bilirubin 0.4 mg/dL (0.2-1.3) 09/21/18 14:26 AST 35 U/L (14-36) 09/21/18 14:26 ALT 50 U/L (9-52) 09/21/18 14:26 Alkaline Phosphatase 118 U/L (38-126) 09/21/18 14:26 CK-MB (Mass) 1.09 ng/mL (0.0-3.38) 09/21/18 14:26 Troponin I < 0.0120 ng/mL (0.00-0.120) 09/22/18 07:00 Total Protein 7.0 g/dL (6.3-8.3) 09/21/18 14:26 Albumin 4.1 g/dL (3.5-5.0) 09/21/18 14:26 Globulin 2.9 gm/dL (2.2-3.9) 09/21/18 14:26 Albumin/Globulin Ratio 1.4 (1.0-2.1) 09/21/18 14:26 Urine Color Yellow (YELLOW) 09/21/18 13:11 Urine Clarity Clear (Clear) 09/21/18 13:11 Urine pH 5.0 (5.0-8.0) 09/21/18 13:11 Ur Specific [place] 1.015 (1.003-1.030) 09/21/18 13:11 Urine Protein Negative mg/dL (NEGATIVE) 09/21/18 13:11 Urine Glucose (UA) Normal mg/dL (Normal) 09/21/18 13:11 Urine Ketones Negative mg/dL (NEGATIVE) 09/21/18 13:11 Urine Blood 1+ (NEGATIVE) H 09/21/18 13:11 Urine Nitrate Negative (NEGATIVE) 09/21/18 13:11 Urine Bilirubin Negative (NEGATIVE) 09/21/18 13:11 Urine Urobilinogen Normal mg/dL (0.2-1.0) 09/21/18 13:11 Ur Leukocyte Esterase Neg [place]/uL (Negative) 09/21/18 13:11 Urine WBC (Auto) < 1 /hpf (0-5) 09/21/18 13:11 Urine RBC (Auto) < 1 /hpf (0-3) 09/21/18 13:11 Urine Bacteria Rare (<OCC) 09/21/18 13:11 Influenza Typ A,B (EIA) Negative for flu a/b (NEGATIVE) 09/21/18 19:25 H.influenzae Type B Ag Negative (NEGATIVE) 09/21/18 20:47 Ur L.pneumophila Ag Negative (NEGATIVE) 09/21/18 20:47 N.meningitidis ACY/W135 Negative (NEGATIVE) 09/21/18 20:47 N.meningi B/E.coli K1 Ag Negative (NEGATIVE) 09/21/18 20:47 Group B Strep Antigen Negative (NEGATIVE) 09/21/18 20:47 S. pneumoniae Antigen Negative (NEGATIVE) 09/21/18 20:47 Attending/Attestation - Attestation I have personally seen and examined this patient.: Yes I have fully participated in the care of the patient.: Yes I have reviewed all pertinent clinical information, including history, physical exam and plan: Yes Notes (Text): 09/22/18 18:54 Medical attending: Patient was seen and examined by me. Agree with the above note by the resident The patient was not in any acute distress when I came and saw her with the resident Patient should follow up with her primary physician We explained that she should complete her PO abx even if she feels well Maximiliano Casper 09/22/18 18:55
[2018-09-22] MEDS ORDERED: Enoxaparin 40 mg Syringe SC SCH (10:00)
[2018-09-22] MEDS ORDERED: Influenza Vaccine 60 mcg/0.5 mL SYR (4YR UP) IM ONE (11:35)
[2018-09-22] MEDS ORDERED: Pneumococcal 23-Valent Vaccine IM ONE (11:35)
[2018-09-22 12:15] LABS: N MENINGITIS ACY/W135 NEGATIVE (NEGATIVE); N MENINGITIS B/ECOLI K1 NEGATIVE (NEGATIVE); STREP PNEUMONIAE NEGATIVE (NEGATIVE); STREPTOCOCCUS B NEGATIVE (NEGATIVE)
--- NOTE | 2018-09-22 17:46 | CARD ---
APPROVED REPORT Date of service: 09/21/2018 EKG Measurement Heart [id number] <Conclusion> Sinus bradycardia Otherwise normal ECG
[2018-09-24] MEDS ORDERED: Influenza Vaccine 60 mcg/0.5 mL SYR (4YR UP) IM ONE (10:00)
[2018-09-24] MEDS ORDERED: Pneumococcal 23-Valent Vaccine IM ONE ×2 (10:00)
== END 2018-09-22 13:30 | disposition home or self-care (01) ==
LOC: C.ER 11:37 → INTOOBSV 18:33 → C.3T 18:33
PROVIDERS: ADMIT Internal Medicine; ATTEND Internal Medicine
DX: J18.9 Pneumonia, unspecified organism (principal); Z82.49 Family history of ischemic heart disease and other diseases of the circulatory system; Z98.891 History of uterine scar from previous surgery
CPT/HCPCS: 36415; 71045; 71275; 80048; 80053; 81001; 82553; 84484; 85025; 85378; 85610; 85730; 86403; 86738; 87040; 87449; 87804; 93005; 96374; 99285; G0378; J0456; J0696; Q9967